=== PATIENT | female | born 1935 | race Caucasian/White ===

== ENCOUNTER → 2017-07-18 | Outpatient (CLI) | payer MEDICARE ==
[~2017-07-18] MED LIST: ACET-1757 PO; ACET325T21 PO; ACLI400A2 INH; AMIO200T42 PO; AMLO5TAB2 PO; ASPI-515 PO; ASPI-650 PO; BISA10SU2 PR; CARV-39 PO; CARV12.543 PO; CHOL10002 PO; CHOL2000 PO; CYAN100028 PO; DOCU100C33 PO; DRON2.5C2 PO; ENOX40SY4 SQ; FLUT1DIS3 INH; FOLI-17 PO; FURO40TA6 PO; HYDR-3237 PO; HYDR-3341 PO; HYDR25TA11 PO; LEVE500T53 PO; LISI-167 PO; LISI-170 PO; LISI5TAB7 PO; LORA2VIA4 IV; MAGN400T7 PO; METO-93 PO; NAPR220C2 PO; OMEP-110 PO; ONDA4TAB13 SL; OXYC1TAB7 PO; PANT40TA5 PO; POLY17PO5 PO; POTA20TA14 PO; POTASSIUM PO; SODI1TAB PO; SULF-16 PO; TEMA15CA6 PO; TIOT18CA INH; TRAM50TA2 PO
[2017-07-18 12:11] LABS: BLOOD UREA NITROGEN 16 mg/dL (7-18)
== END | disposition home or self-care (01) ==
LOC: LAB 11:26
PROVIDERS: ATTEND Otolaryngology
DX: D37.09 Neoplasm of uncertain behavior of other specified sites of the oral cavity (principal)
CPT/HCPCS: 36415; 82565; 84520

== ENCOUNTER → 2017-07-20 | Outpatient (CLI) | payer MEDICARE ==
[~2017-07-20] MED LIST changes: +OMNIPAQUE 350 MG/ML, 100ML BOTTLE ONE
== END | disposition home or self-care (01) ==
LOC: CFH 14:08
PROVIDERS: ATTEND Otolaryngology
DX: D37.09 Neoplasm of uncertain behavior of other specified sites of the oral cavity (principal)
CPT/HCPCS: 70491; Q9967